=== PATIENT | male | born 1995 | race African-American/Black ===

== ENCOUNTER 2022-08-19 08:09 | Emergency (ER) | payer SELFPAY ==
[2022-08-19 08:29] VITALS: BP 145/81; PULSE 64; O2SAT 100
[2022-08-19] MEDS ORDERED: Naprosyn 500 MG PO ONE (08:33)
--- NOTE | 2022-08-19 08:37 | ERPHSYRPT ---
- History of Present Illness Time Seen by Provider: 08/19/22 08:33 Source: patient Exam Limitations: no limitations Patient Subjective Stated Complaint: C/O pain in right hand and wrist. Patient has pins in his right wrist from a previous surgery. He states he works for the [employer] and was using that hand/wrist a lot yesterday shoveling. Patient states he is in severe pain today and can not use his right hand/wrist. Triage Nursing Assessment: Patient ambulated back to ED without difficulties. No SOB. He is alert and oriented. CMS to fingers on right hand WNL. Radial pulse present. Scar noted to posterior right wrist from previous surgery. Physician History: C/O pain in right hand and wrist. Patient has pins in his right wrist from a previous surgery. 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 Patient states he is in severe pain today and can not use his right hand/wrist. No previous hx of pain in right hand and wrist Occurred: yesterday Method of Injury: other Quality: constant Severity of Pain-Max: moderate Severity of Pain-Current: moderate Extremities Pain Location: wrist: right, hand: right Modifying Factors: Improves With: nothing Associated Symptoms: none Allergies/Adverse Reactions: No Known Drug Allergies Allergy (Verified 08/19/22 08:18) Hx Tetanus, Diphtheria Vaccination/Date Given: Yes Hx Influenza Vaccination/Date Given: No Hx Pneumococcal Vaccination/Date Given: No Immunizations Up to Date: Yes Travel Risk - International Travel Have you traveled outside of the country in past 3 weeks: No - Coronavirus Screening Are you exhibiting any of the following symptoms?: No Close contact with a COVID-19 positive Pt in past 14-21 Days: No - Vaccine Status Have you recieved a Covid-19 vaccination: No - Review of Systems Constitutional: No Symptoms Eyes: No Symptoms Ears, Nose, & Throat: No Symptoms Respiratory: No Symptoms Cardiac: No Symptoms Abdominal/Gastrointestinal: No Symptoms Genitourinary Symptoms: No Symptoms Musculoskeletal: Joint Pain, Joint Swelling, No Deformity, No Fall, No Injury, No Joint Redness Neurological: No Symptoms Psychological: No Symptoms Endocrine: No Symptoms - Past Medical History Pertinent Past Medical History: Yes Respiratory History: Asthma - Past Surgical History Past Surgical History: Yes Musculoskeletal: Other Other Surgical History: pins in right wrist from a 4-woodward accident - Social History Smoking Status: Never smoker Exposure to second hand smoke: Yes Drug Use: none - Nursing Vital Signs Nursing Vital Signs: Initial Vital Signs Temperature 97.7 F 08/19/22 08:19 Pulse Rate 64 08/19/22 08:19 Respiratory Rate 18 08/19/22 08:19 Blood Pressure 145/81 08/19/22 08:19 O2 Sat by Pulse Oximetry 100 08/19/22 08:19 Pain Scale Pain Intensity [] 10 Pain Intensity 10 - Physical Exam General Appearance: no apparent distress Eyes, Ears, Nose, Throat Exam: normal ENT inspection Neck Exam: normal inspection Cardiovascular/Respiratory Exam: chest non-tender Abdominal Exam: non-tender Back Exam: normal inspection Shoulder Exam: normal inspection Elbow/Forearm Exam: normal inspection Wrist Exam: limited ROM, soft tissue tenderness, swelling, No deformity Hand Exam: No limited ROM Neuro/Tendon Exam: normal sensation, normal motor functions, normal tendon functions, responds to pain, no evidence tendon injury, No motor deficit, No sensory deficit, No tendon function deficit, No tendon injury visualized Mental Status Exam: alert, oriented x 3, cooperative Skin Exam: normal color SpO2 Interpretation: normal SpO2: 100 O2 Delivery: Room Air - Course Nursing assessment & vital signs reviewed: Yes - Radiology Exams Wrist X-ray Interpretation: Reviewed by , Georgie, [place] Soft Tissues Hand X-ray Interpretation: Reviewed by , [place] Soft Tissues Ordered Tests: Active Orders 24 hr Category Date Time Status HAND (MINIMUM 3 VIEWS) Stat Exams 08/19/22 08:32 Taken WRIST (MIN 3 VIEWS) Stat Exams 08/19/22 08:32 Taken Medication Summary Discontinued Medications Generic Name Dose Route Start Last Admin Trade Name Peri PRN Reason Stop Dose Admin Ibuprofen 600 mg 08/19/22 08:46 08/19/22 08:54 Ibuprofen 600 Mg Tablet PO 08/19/22 08:47 600 mg STAT ONE Administration Ibuprofen Confirm 08/19/22 08:47 Ibuprofen 600 Mg Tablet Administered 08/19/22 08:48 Dose 600 mg .ROUTE .STK-MED ONE Naproxen 500 mg 08/19/22 08:33 08/19/22 08:45 Naproxen 500 Mg Tablet PO 08/19/22 08:34 Not Given STAT ONE - Progress Progress: improved, pain not gone completely Counseled pt/family regarding: diagnosis, need for follow-up, rad results - Departure Departure Disposition: Home Clinical Impression: Right hand pain Right wrist injury Qualifiers: Encounter type: initial encounter Qualified Code(s): S69.91XA - Unspecified injury of right wrist, hand and finger(s), initial encounter Condition: Stable Critical Care Time: No Referrals: DOCTOR,NO FAMILY [Primary Care Provider] - Follow up/PCP as directed Additional Instructions: Discharge/Care Plan DEVON MORGAN was seen on 08/19/22 in the Emergency Room. The patient was counseled regarding Diagnosis,Lab results, Imaging studies, need for follow up and when to return to the Emergency Room. Prescriptions given: Discharge Note I have spoken with the patient and/or caregivers. I have explained the patient's condition, diagnosis and treatment plan based on the information available to me at this time. I have answered the patient's and/or caregiver's questions and addressed any concerns. The patient and/or caregivers have as good understanding of the patient's diagnosis, condition and treatment plan as can be expected at this point. The vital signs have been stable. The patient's condition is stable and appropriate for discharge from the emergency department. The patient will pursue further outpatient evaluation with the primary care physician or other designated or consulting physician as outlined in the dischar ge instructions. The patient and/or caregivers are agreeable to this plan of care and follow-up instructions have been explained in detail. The patient and/or caregivers have received these instruction. The patient/and or caregivers are aware that any significant change in condition or worsening of symptoms should prompt an immediate return to this or the closest emergency department or call 911. DEVON MORGAN was seen on 08/19/22 n the Emergency Room. At that time you were treated for an emergent condition, during your visit Laboratory, Radiology and/or other procedures may have been ordered. It is very important that you follow-up with your Primary Care Physician NO FAMILY DOCTOR within the next 24- 48 hours to review your Emergency Room visit and the final results of testing that was ordered. Some test results such as Urine Cultures, Blood Cultures, and other cultures if ordered will not be finalized for 24-48 hours. If you do not have a Primary Care Provider please call the medical records department at [phone] to obtain a copy of your results or you may sign into our patient portal to obtain these results by visiting us @ [email or web address] and completing the following steps: 1. Click on the Patient Portal link 2. Click the Patient Self Enrollment Link to complete the enrollment form and entering your 3. Once the enrollment form is completed you will receive an email with a temporary ID and password at the email address you provided. 4. Next choose a user name and password. Your user name must be at least 4 characters long and your password must be at least 4 characters long. 5. Choose a security question from the list and provide your answer to the question. If you already have signed into the Health Portal you may access your Health Care Information 22/04 by the following steps: 1. Login to our website @ [email or web address] 2. Enter your original user name and password. FAQS The [facility] Portal is an online tool that contains your Lab Results, Rad iology Reports, Visit History, Discharge Instructions and Health Summary Lab and Radiology Results will not be available for 72 hours on the portal. The Portal is a secure site, passwords are encryted and URLs are re-written so they cannot be copied and pasted. You and authorized family members are the only ones who can access your Portal. Also there is a timeout feature that protects your information if you leave the Portal page open. If you have technical difficulty please use the Contact Us link on the page this will allow you to submit any questions you have regarding the Portal or you may contact the Medical Record Department at [phone]. Prescriptions: Naproxen 375 mg [Naprosyn 375 mg] 375 mg PO Q8H #30 tablet
[2022-08-19] MEDS ORDERED: MOTRIN 600 MG PO ONE (08:46)
[2022-08-19] MEDS ORDERED: MOTRIN 600 MG ONE (08:47)
--- NOTE | 2022-08-19 17:20 | XRAY ---
Indication: Pain. No known injury. Comparison: None 3 view right hand demonstrates old distal radial and carpal fractures with multiple orthopedic hardware reported separately. No other bony, articular, or soft tissue abnormalities.
--- NOTE | 2022-08-19 17:20 | XRAY ---
Indication: Pain. No known injury. Comparison: None 3 view right wrist demonstrates numerous radiocarpal, scaphoid, capitate, and triquetrum orthopedic hardware fixating old fractures with tiny anterior/posterior heterotopic ossifications. No other bony, articular, or soft tissue abnormalities.
== END 2022-08-19 09:38 | disposition home or self-care (01) ==
LOC: ED 08:09
DX: S69.91XA Unspecified injury of right wrist, hand and finger(s), initial encounter (principal); X50.3XXA Overexertion from repetitive movements, initial encounter; X50.0XXA Overexertion from strenuous movement or load, initial encounter; Y99.0 Civilian activity done for income or pay; M79.641 Pain in right hand; M25.531 Pain in right wrist; Z28.310 Unvaccinated for COVID-19
CPT/HCPCS: 73110; 73130; 99283; A9270-GY